=== PATIENT | female | born 1955 | race Caucasian/White ===

== ENCOUNTER 2022-12-27 13:24 | Outpatient (CLI) | payer MEDICARE, OTHER | END 2022-12-27 13:25 | disposition home or self-care (01) | LOC: CSHMAMMO 13:24 | PROVIDERS: ATTEND Internal Medicine | DX: Z12.31 Encounter for screening mammogram for malignant neoplasm of breast (principal) | CPT/HCPCS: 77063; 77067 ==

== ENCOUNTER 2023-09-05 06:40 | Day surgery (SDC) | payer MEDICARE, OTHER ==
[2023-09-04 09:26] VITALS: BMI 32.2
[2023-09-05] MEDS ORDERED: Bupivacaine PF 0.5% 30 ML VIAL ONE (08:12)
[2023-09-05] MEDS ORDERED: CEFAZOLIN 2 GM VIAL ONE (08:23)
[2023-09-05] MEDS ORDERED: Midazolam HCl 2 mg/2 ml Vial ONE (08:36)
[2023-09-05] MEDS ORDERED: Ketorolac Tromethamine 30 MG (1 mL) VIAL ONE (08:36)
[2023-09-05] MEDS ORDERED: Ondansetron PF 4 MG/2 ML Vial ONE (08:36)
[2023-09-05] MEDS ORDERED: fentaNYL 50 mcg/mL 1 mL Vial ONE (08:36)
[2023-09-05] MEDS ORDERED: PROPOFOL 20 ML ONE (08:36)
[2023-09-05] MEDS ORDERED: Lidocaine 1% PF 5 ML VIAL ONE (08:36)
[2023-09-05] MEDS ORDERED: Dexamethasone 20 MG/5 ML VIAL ONE (08:36)
== END 2023-09-05 10:50 | disposition home or self-care (01) ==
LOC: CSHSDC 06:40
PROVIDERS: ATTEND Podiatrist Foot & Ankle Surgery
PROC: 0SRP0JZ Replacement of Right Toe Phalangeal Joint with Synthetic Substitute, Open Approach (ICD-10-PCS; principal; 2023-09-05)
DX: M20.41 Other hammer toe(s) (acquired), right foot (principal); I10 Essential (primary) hypertension; K21.9 Gastro-esophageal reflux disease without esophagitis; G43.909 Migraine, unspecified, not intractable, without status migrainosus; Z87.19 Personal history of other diseases of the digestive system; Z90.49 Acquired absence of other specified parts of digestive tract; Z98.51 Tubal ligation status; Z90.710 Acquired absence of both cervix and uterus; Z87.891 Personal history of nicotine dependence; Z79.899 Other long term (current) drug therapy
CPT/HCPCS: 28285; 73620; C1776; J0665; J1100; J1885; J2250; J2405; J2704; J3010

== ENCOUNTER 2023-12-29 11:22 | Outpatient (CLI) | payer MEDICARE, OTHER | END 2023-12-29 11:23 | disposition home or self-care (01) | LOC: CSHMAMMO 11:22 | PROVIDERS: ATTEND Internal Medicine | DX: Z12.31 Encounter for screening mammogram for malignant neoplasm of breast (principal) | CPT/HCPCS: 77063; 77067 ==